=== PATIENT | female | born 1975 | race Caucasian/White ===

== ENCOUNTER 2018-05-08 00:14 | Emergency (ER) | payer OTHER ==
[~2018-05-08] VITALS: Ht 170.2 cm; Wt 63.5 kg
[2018-05-08] MEDS ORDERED: MOBIC15 MG (00:27)
[2018-05-08] MEDS ORDERED: PERCOCET 5-3251 EACH PO (07:19)
== END 2018-05-08 07:47 | disposition home or self-care (01) ==
LOC: ER 00:14
DX: R10.12 Left upper quadrant pain (principal)

== ENCOUNTER 2018-12-25 09:26 | Outpatient (CLI) | payer OTHER ==
[~2018-12-25 09:26] MED LIST: MOBIC15 MG; PERCOCET 5-3251 EACH PO
== END 2018-12-25 11:09 | disposition home or self-care (01) ==
LOC: SONOGRAMA 09:26
DX: E04.1 Nontoxic single thyroid nodule (principal)

== ENCOUNTER 2023-05-06 16:25 | Outpatient (CLI) | payer OTHER | END 2023-05-06 16:38 | disposition home or self-care (01) | LOC: SONOGRAMA 16:25 | PROVIDERS: ATTEND Pathology Anatomic Pathology & Clinical Pathology | DX: D34 Benign neoplasm of thyroid gland (principal); E07.89 Other specified disorders of thyroid; E04.2 Nontoxic multinodular goiter ==